=== PATIENT | male | born 1990 | race Hispanic/Latino ===

== ENCOUNTER 2022-05-29 18:12 | Emergency (ER) | payer SELFPAY ==
[2022-05-29 18:57] VITALS: BP 131/81; PULSE 64; RESP 16; TEMP 36.3; O2SAT 99
[2022-05-29 19:14] LABS: Strep Group A RT-PCR DETECTED (Negative)
[2022-05-29 19:27] LABS: Influenza A QL RT-PCR Negative (Negative); Influenza B QL RT-PCR Negative (Negative); SARS-CoV-2 RNA PCR Negative
[2022-05-29 20:55] VITALS: BP 122/85; PULSE 60; RESP 16; O2SAT 100
--- NOTE | 2022-05-29 20:55 | ED.GENADULT ---
HPI - General Adult General Chief complaint: Abdominal Pain Stated complaint: Sore throat Time Seen by Provider: 05/29/22 20:39 History of Present Illness HPI narrative: Patient 32-year-old gentleman who presents the emergency department with chief complaint of sore throat and epigastric discomfort. Patient reports for several days he has had discomfort in his throat worse with swallowing patient reports he is able to swallow without secretions the patient reports that he had no known exposure to strep the patient states that he is uncomfortable feeling in his epigastrium region the patient reports no vomiting no diarrhea. Related Data Home Medications Medication Instructions Recorded Confirmed No Home Medications 05/29/22 05/29/22 Allergies Allergy/AdvReac Type Severity Reaction Status Date / Time No Known Allergies Allergy Verified 05/29/22 20:55 Review of Systems Review of Systems: A 10 system review of systems was completed on the patient and is negative except for what is stated in the HPI. Nursing and ancillary documentation was reviewed. Exam Narrative: GENERAL: Well-appearing, well-nourished, and in no acute distress. HEAD: Normocephalic, atraumatic. EYES: PERRLA and EOMI. ENT: Nares clear, no rhinorrhea or epistaxis. Mucous membranes moist. No exudate present, no signs of peritonsillar abscess NECK: Supple. CHEST: Clear to auscultation. No respiratory distress. HEART: Regular rate and rhythm. No murmur heard. Normal peripheral pulses. ABDOMEN: Soft, nontender, nondistended, normal active bowel sounds. EXTREMITIES: Normal range of motion. No edema. SKIN: Warm, dry, no rash. NEURO: No focal deficits. Alert and oriented x3. PSYCH: Normal mood and affect. Course Vital Signs Vital signs: Vital Signs Temperature 36.3 C L 05/29/22 18:57 Pulse Rate 64 05/29/22 18:57 Respiratory Rate 16 05/29/22 18:57 Blood Pressure 131/81 05/29/22 18:57 Pulse Oximetry 99 05/29/22 18:57 Temperature 36.3 C L 05/29/22 18:57 Pulse Rate 64 05/29/22 18:57 Respiratory Rate 16 05/29/22 18:57 Blood Pressure 131/81 05/29/22 18:57 Pulse Oximetry 99 05/29/22 18:57 Medical Decision Making MDM Narrative Medical decision making narrative: Differential diagnosis includes viral upper respiratory infection, strep pharyngitis, Strep test was positive History was obtained through an bus girl as the patient is primarily Danish-speaking. The patient was offered oral antibiotics versus single intramuscular dose of Bicillin LA patient is opted for single dose Bicillin for treatment of strep. The patient will also be given a dose of steroids in the emergency department. Vital Signs Vital Signs: Vital Signs Temperature 36.3 C L 05/29/22 18:57 Pulse Rate 64 05/29/22 18:57 Respiratory Rate 16 05/29/22 18:57 Blood Pressure 131/81 05/29/22 18:57 Pulse Oximetry 99 05/29/22 18:57 Temperature 36.3 C L 05/29/22 18:57 Pulse Rate 64 05/29/22 18:57 Respiratory Rate 16 05/29/22 18:57 Blood Pressure 131/81 05/29/22 18:57 Pulse Oximetry 99 05/29/22 18:57 Lab Data Labs: Lab Results 05/29/22 05/29/22 Range/Units 18:44 18:44 Influenza A (RT-PCR) Negative (Negative) Influenza B (RT-PCR) Negative (Negative) SARS-CoV-2 RNA (RT-PCR) Negative Group A Strep (PCR) Detected A (Negative) Discharge Plan Discharge Clinical Impression: Acute streptococcal pharyngitis, Acute epigastric pain Patient Disposition: Home, Self-Care Condition: Stable Instructions: Antibiotic Form, Abdominal Pain (ED), Strep Throat (ED), Pharyngitis (ED) Additional Instructions: You received a dose of antibiotic that will cover the entire course of treatment of your strep throat. No further medication will be required to complete the treatment. Patient Language: Danish Prescriptions: No Action No Home Medications Follow-up/
[2022-05-29] MEDS: predniSONE 20 MG TABLET 60 MG PO (21:14)
[2022-05-29] MEDS: PENICILLIN G BENZATHINE 1,200,000 UNITS/2 ML SYRINGE 1200000 UNITS IM (21:15)
== END 2022-05-29 21:26 | disposition home or self-care (01) ==
PROVIDERS: Physician Assistant; Emergency Provider Emergency Medicine
DX: J02.0 Streptococcal pharyngitis (principal); R10.13 Epigastric pain; Z20.822 Contact with and (suspected) exposure to COVID-19
CPT/HCPCS: 87636; 87651; 96372; 99283; J0561; J7512